=== PATIENT | female | born 1975 | race American Indian/Alaskan Native ===

== ENCOUNTER 2017-07-13 08:21 | Emergency (ER) | payer OTHER ==
[2017-07-13] MEDS ORDERED: MORPHINE IM ONE ×2 (09:32→11:23)
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
[2017-07-13] MEDS ORDERED: XYLOCAINE 2% INFILTRATI ONE (11:09)
[2017-07-13] MEDS ORDERED: NACL 0.9% IR ONE (11:11)
[2017-07-13] MEDS ORDERED: BOOSTRIX IM ONE (11:25)
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
[2017-07-13 13:18] VITALS: BP 154/58
== END 2017-07-13 13:23 | disposition home or self-care (01) ==
LOC: ED 08:21
DX: S02.2XXA Fracture of nasal bones, initial encounter for closed fracture (principal); S01.81XA Laceration without foreign body of other part of head, initial encounter; G44.319 Acute post-traumatic headache, not intractable; F17.200 Nicotine dependence, unspecified, uncomplicated; V49.59XA Passenger injured in collision with other motor vehicles in traffic accident, initial encounter; Y93.89 Activity, other specified; Y92.89 Other specified places as the place of occurrence of the external cause; Y99.8 Other external cause status
CPT/HCPCS: 12013; 36415; 70450; 70486; 72125; 84703; 90471; 90715; 96372; 99285; J2270

== ENCOUNTER 2020-10-16 03:09 | Emergency (ER) | payer SELFPAY ==
[2020-10-16 03:58] LABS: Basophils # (Auto) 0.2 K/mm3 (0.0-0.1); Basophils % (Auto) 1.2 % (0.0-1.8); Eosinophils % (Auto) 0.1 % (0.0-4.3); Hematocrit 39.4 % (30.3-42.9); Hemoglobin 13.1 gm/dl (10.1-14.3); Lymphocytes # (Auto) 1.6 K/mm3 (1.2-5.4); Lymphocytes % (Auto) 11.9 % (13.4-35.0); Mean Corpuscular HGB Conc 33 % (30-34); Mean Corpuscular Volume 92 fl (79-97); Monocytes # (Auto) 0.9 K/mm3 (0.0-0.8); Monocytes % (Auto) 6.4 % (0.0-7.3); Platelet Count 351 K/mm3 (140-440); Red Blood Count 4.29 M/mm3 (3.65-5.03); Red Cell Distribution Width 14.4 % (13.2-15.2)
[2020-10-16 04:03] LABS: Alanine Aminotransferase 13 units/L (7-56); Albumin 3.6 g/dL (3.9-5); BUN/Creatinine Ratio 17; Blood Urea Nitrogen 15 mg/dL (7-17); Calcium 9.2 mg/dL (8.4-10.2); Hemolysis Index 4
[2020-10-16] MEDS ORDERED: LIDOCAINE VISCOUS 2% 15 ML ORAL LIQD PO ONE (04:19)
[2020-10-16] MEDS ORDERED: ALUM-MAG HYDROXIDE-SIMETHICONE 200-200-20MG/5ML ORAL LIQD 30 ML PO ONE (04:19)
[2020-10-16 04:27] LABS: Bilirubin,Urine NEG (Negative); Blood,Urine SM (Negative); Color,Urine Amber (Yellow); Mucus,Urine 3+ /HPF
[2020-10-16] MEDS ORDERED: cefTRIAXone/NS 1 GM/50 ML 1 GM/50 ML BAG IV ONE (04:53)
[2020-10-16] MEDS ORDERED: SODIUM CHLORIDE 0.9% 1000 ML 1,000 ML IV ONE (04:53)
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
[2020-10-16 05:54] VITALS: BP 113/69
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
== END 2020-10-16 07:07 | disposition home or self-care (01) ==
LOC: ED 03:09
DX: N39.0 Urinary tract infection, site not specified (principal); Z79.899 Other long term (current) drug therapy
CPT/HCPCS: 36415; 74018; 74176; 80053; 81001; 83690; 84703; 85025; 87086; 96365; 99284; J0696; J7030

== ENCOUNTER 2021-11-09 17:40 | Emergency (ER) | payer SELFPAY ==
[2021-11-09] MEDS ORDERED: IBUPROFEN 600 MG TAB PO ONE (20:19)
[2021-11-09] MEDS ORDERED: HYDROcodone/ACETAMINOPHEN 7.5-325MG TAB PO ONE (20:19)
[2021-11-09] MEDS ORDERED: ONDANSETRON 4 MG ODT TAB PO ONE (20:19)
--- NOTE | 2021-11-09 20:24 | Emergency Department Report ---
ED General Adult HPI - General Chief complaint: Dental/Oral Stated complaint: TOOTHACHE Source: patient Mode of arrival: Ambulatory Limitations: No Limitations - History of Present Illness Initial comments: Patient is a 46-year-old -[place] female with no past medical history presented to the ED with complaint of acute onset persistent bilateral maxillary premolar and molar tooth ache with multiple dental cavities and dental caries for the last 2 weeks, worse in the last 2 days. Patient stated that she has been taking [id number] medications including Tylenol and ibuprofen with no relief. Patient states that in the last 2 days she has not been able to eat because of worsening pain. Patient denies fever, chills, nausea and vomiting, diarrhea, dizziness, syncope, sore throat, chest pain, shortness of breath, headache, facial numbness or neck pain and cough. MD Complaint: dental pain; dental cavities, gingival pain -: Sudden, week(s) (2) Location: mouth Radiation: non-radiation Severity scale (0 -10): 9 Quality: aching, sharp Consistency: constant Improves with: none Worsens with: none Associated Symptoms: denies other symptoms. denies: confusion, chest pain, cough, diaphoresis, fever/chills, malaise, nausea/vomiting, rash, seizure, shortness of breath, syncope, weakness Treatments Prior to Arrival: none - Related Data Previous Rx's Medication Instructions Recorded Last Taken Type HYDROcodone/APAP 7.5-325 [[place] 1 each PO Q8HR PRN #10 tablet 07/13/17 Unknown Rx 7.5-325 mg TAB] Ibuprofen [Motrin] 800 mg PO Q8HR PRN #15 tablet 07/13/17 Unknown Rx cephALEXin [Keflex] 500 mg PO Q6HR #14 capsule 07/13/17 Unknown Rx Ibuprofen [Motrin 800 MG tab] 800 mg PO Q8HR PRN #30 tablet 10/16/20 Unknown Rx Nitrofurantoin [place]/M-Cryst 100 mg PO BID 7 Days #14 capsule 10/16/20 Unknown Rx [Macrobid CAP] Clindamycin [Clindamycin CAP] 300 mg PO Q8H #30 cap 11/09/21 Unknown Rx Ketorolac [Toradol] 10 mg PO Q8H PRN #20 11/09/21 Unknown Rx traMADoL [Ultram] 50 mg PO Q6HR PRN #12 tablet 11/09/21 Unknown Rx Allergies Allergy/AdvReac Type Severity Reaction Status Date / Time codeine Allergy Swelling Verified 07/13/17 08:54 ED Review of Systems ROS: Stated complaint: TOOTHACHE Other details as noted in HPI Constitutional: denies: chills, fever Eyes: denies: eye pain, eye discharge, vision change ENT: dental pain (bilateral maxillary premolar and molar toothache, dental cavities and gum pain). denies: ear pain, throat pain Respiratory: denies: cough, shortness of breath, wheezing Cardiovascular: denies: chest pain, palpitations Endocrine: no symptoms reported Gastrointestinal: denies: abdominal pain, nausea, diarrhea Genitourinary: denies: urgency, dysuria, discharge Musculoskeletal: denies: back pain, joint swelling, arthralgia Skin: denies: rash, lesions Neurological: denies: headache, weakness, paresthesias Psychiatric: denies: anxiety, depression Hematological/Lymphatic: denies: easy bleeding, easy bruising ED Past Medical Hx - Past Medical History Previous Medical History?: No - Surgical History Past Surgical History?: No - Social History Smoking Status: Never Smoker Substance Use Type: None - Medications Home Medications: Home Medications Medication Instructions Recorded Confirmed Last Taken Type HYDROcodone/APAP 7.5-325 [[place] 1 each PO Q8HR PRN #10 tablet 07/13/17 Unknown Rx 7.5-325 mg TAB] Ibuprofen [Motrin] 800 mg PO Q8HR PRN #15 tablet 07/13/17 Unknown Rx cephALEXin [Keflex] 500 mg PO Q6HR #14 capsule 07/13/17 Unknown Rx Ibuprofen [Motrin 800 MG tab] 800 mg PO Q8HR PRN #30 tablet 10/16/20 Unknown Rx Nitrofurantoin [place]/M-Cryst 100 mg PO BID 7 Days #14 capsule 10/16/20 Unknown Rx [Macrobid CAP] Clindamycin [Clindamycin CAP] 300 mg PO Q8H #30 cap 11/09/21 Unknown Rx Ketorolac [Toradol] 10 mg PO Q8H PRN #20 11/09/21 Unknown Rx traMADoL [Ultram] 50 mg PO Q6HR PRN #12 tablet 11/09/21 Unknown Rx ED Physical Exam - General Limitations: No Limitations General appearance: alert, in no apparent distress - Head Head exam: Present: atraumatic, normocephalic, normal inspection - Eye Eye exam: Present: normal appearance, PERRL, EOMI Pupils: Present: normal accommodation - ENT ENT exam: Present: mucous membranes moist, TM's normal bilaterally, normal external ear exam, other (Palpable bilateral maxillary premolar and molar tooth tenderness with gross multiple cavities, swelling and tender gingiva) - Neck Neck exam: Present: normal inspection, full ROM. Absent: tenderness, lymphadenopathy - Respiratory Respiratory exam: Present: normal lung sounds bilaterally. Absent: respiratory distress, wheezes, rales, rhonchi, chest wall tenderness, accessory muscle use, decreased breath sounds, prolonged expiratory - Cardiovascular Cardiovascular Exam: Present: regular rate, normal rhythm, normal heart sounds. Absent: systolic murmur, diastolic murmur, rubs, gallop - GI/Abdominal GI/Abdominal exam: Present: soft, normal bowel sounds. Absent: tenderness, guarding, rebound, hyperactive bowel sounds, hypoactive bowel sounds, mass - Extremities Exam Extremities exam: Present: normal inspection, full ROM, normal capillary refill - Back Exam Back exam: Present: normal inspection, full ROM. Absent: tenderness, CVA tenderness (R), CVA tenderness (L), muscle spasm, paraspinal tenderness, vertebral tenderness - Neurological Exam Neurological exam: Present: alert, oriented X3, CN II-XII intact, normal gait, reflexes normal - Psychiatric Psychiatric exam: Present: normal affect, normal mood - Skin Skin exam: Present: warm, dry, intact, normal color. Absent: rash ED Course Vital Signs 11/09/21 18:00 Temperature 98.6 F Pulse Rate 88 Respiratory 20 Rate Blood Pressure 145/78 [Right] O2 Sat by Pulse 100 Oximetry ED Medical Decision Making - Medical Decision Making This is a 46-year-old -[place] female with no past medical history presented to the ED with complaint of acute onset persistent bilateral maxillary premolar and molar tooth ache with multiple dental cavities and dental caries for the last 2 weeks, worse in the last 2 days. Patient stated that she has been taking [id number] medications including Tylenol and ibuprofen with no relief. Patient states that in the last 2 days she has not been able to eat because of worsening pain. In the ED, patient is alert and oriented x3 and is not in any distress but cries in pain and is hemodynamically stable. Patient was treated for pain in the ED and on reevaluation, patient's pain is well controlled medication. Patient was advised to follow-up with her dentist or primary care physician in 7 to 10 days for reevaluation or return to the ED immediately if symptoms get worse. - Differential Diagnosis Dental abscess, gingivitis; dental cavity; dental caries Critical care attestation.: If time is entered above; I have spent that time in minutes in the direct care of this critically ill patient, excluding procedure time. ED Disposition Clinical Impression: Dental cavities, Acute gingivitis, Dental abscess Disposition: HOME / SELF CARE / HOMELESS Is pt being admited?: No Does the pt Need Aspirin: No Condition: Stable Instructions: Dental Abscess, [id number], Trench Mouth Additional Instructions: Take medication with food, drink plenty of fluids and follow-up with your dentist or primary care physician in 7 to 10 days for reevaluation. Return to the ED immediately if symptoms get worse. Prescriptions: Clindamycin [Clindamycin CAP] 300 mg PO Q8H #30 cap Ketorolac [Toradol] 10 mg PO Q8H PRN #20 PRN Reason: Pain traMADoL [Ultram] 50 mg PO Q6HR PRN #12 tablet PRN Reason: Pain Referrals: [facility] [Outside] - 3-5 Days [facility] [Provider Group] - 3-5 Days Time of Disposition: 20:24 Print Language: YORUBA
[2021-11-09 21:39] VITALS: BP 153/94
== END 2021-11-09 21:11 | disposition home or self-care (01) ==
LOC: ED 17:40
DX: K02.9 Dental caries, unspecified (principal); K05.00 Acute gingivitis, plaque induced; K04.7 Periapical abscess without sinus
CPT/HCPCS: 99282; J3490; Q0162

== ENCOUNTER 2022-04-07 03:13 | Emergency (ER) | payer SELFPAY | END 2022-04-07 03:20 | disposition left against medical advice (07) | LOC: ED 03:13 | DX: R22.42 Localized swelling, mass and lump, left lower limb (principal); Z53.21 Procedure and treatment not carried out due to patient leaving prior to being seen by health care provider ==